=== PATIENT | female | born 1935 | race Caucasian/White ===

== ENCOUNTER → 2017-06-16 | Outpatient (CLI) | payer MEDICARE ==
[~2017-06-16] VITALS: Ht 166.4 cm; Wt 83.9 kg
[~2017-06-16] MED LIST: DILT240C86 PO
[2017-06-16 13:21] VITALS: BP 137/80
[2017-06-16 14:05] LABS: BASOPHILS % (AUTO) 1 % (0-10); EOSINOPHILS # (AUTO) 0.1 10^3/uL (0.0-0.3); EOSINOPHILS % (AUTO) 1 % (0-10); HEMATOCRIT 41 % (35-52); HEMOGLOBIN 13.8 G/DL (11.5-16.0); LYMPHOCYTES # (AUTO) 2.3 X 10^3 (1.0-4.0); LYMPHOCYTES % (AUTO) 31 % (12-44); MEAN CORPUSCULAR HEMOGLOBIN 28 PG (25-34); MEAN CORPUSCULAR HGB CONC 34 G/DL (32-36); MEAN CORPUSCULAR VOLUME 84 FL (80-99); MEAN PLATELET VOLUME 11.3 FL (7.4-10.4); MONOCYTES # (AUTO) 0.8 X 10^3 (0.0-1.0); MONOCYTES % (AUTO) 10 % (0-12); NEUTROPHILS # (AUTO) 4.3 X 10^3 (1.8-7.8); NEUTROPHILS % (AUTO) 57 % (42-75); PLATELET COUNT 286 10^3/uL (130-400); RED CELL DISTRIBUTION WIDTH 15.4 % (10.0-14.5); WHITE BLOOD COUNT 7.5 10^3/uL (4.3-11.0)
[2017-06-16 14:19] LABS: BUN/CREATININE RATIO 22; CALCIUM 9.6 MG/DL (8.5-10.1); CARBON DIOXIDE 23 MMOL/L (21-32); CHLORIDE 106 MMOL/L (98-107); CREATININE SERUM 0.68 MG/DL (0.60-1.30); GFR ESTIMATED > 60; GLUCOSE 94 MG/DL (70-105); POTASSIUM 4.1 MMOL/L (3.6-5.0); SODIUM 141 MMOL/L (135-145)
== END ==
LOC: PREOP 12:51
PROVIDERS: ATTEND Otolaryngology Otolaryngology/Facial Plastic Surgery
DX: Z01.812 Encounter for preprocedural laboratory examination (principal); Z11.2 Encounter for screening for other bacterial diseases; J34.9 Unspecified disorder of nose and nasal sinuses
CPT/HCPCS: 36415; 80048; 85025; 87081

== ENCOUNTER 2017-06-23 07:25 | Day surgery (SDC) | payer MEDICARE ==
[~2017-06-23] VITALS: Ht 166.4 cm; Wt 75.3 kg
[2017-06-23 07:20] VITALS: BP 163/84
[2017-06-23] MEDS ORDERED: LACTATED RINGERS 1,000 ML IV PRN ×2 (07:27→08:07)
[2017-06-23] MEDS ORDERED: MUPIROCIN 2% OINT 22 GM (BACTROBAN) TUBE ONE (07:31)
[2017-06-23] MEDS ORDERED: LIDOCAINE 1% INJ 20 ML 20 ML VIAL ONE (07:31)
[2017-06-23] MEDS ORDERED: ONDANSETRON 4 MG/2 ML (SDV) Z0FRAN ONE ×2 (07:46→10:15)
[2017-06-23] MEDS ORDERED: FAMOTIDINE 20MG/2ML IV (PEPCID) ONE (07:47)
[2017-06-23] MEDS ORDERED: FAMOTIDINE 20MG/2ML IV (PEPCID) IV ONE (08:15)
[2017-06-23] MEDS ORDERED: ONDANSETRON 4 MG/2 ML (SDV) Z0FRAN IV ONE (08:15)
[2017-06-23] MEDS ORDERED: proPOfol 200 MG/20 ML (DIPRIVAN) VIAL IV ONE ×3 (08:29→10:39)
[2017-06-23] MEDS ORDERED: fentaNYL INJECTION 100 MCG/2 ML AMP ONE (08:31)
[2017-06-23] MEDS ORDERED: LIDOCAINE/EPI 1%-1:200,000 (XYLOCAINE) 10 ML VIAL ONE (09:43)
[2017-06-23] MEDS ORDERED: DEXAMETHASONE 10 MG/ML (DECADRON) 1 ML VIAL ONE (10:15)
[2017-06-23] MEDS ORDERED: PROPOFOL INJECTION 100 ML IV ONE (10:15)
[2017-06-23] MEDS ORDERED: BSS 15 ML ONE (10:57)
[2017-06-23 12:15] VITALS: BP 121/55
[2017-06-23] MEDS ORDERED: ONDA4TAB8 SL (12:32)
[2017-06-23] MEDS ORDERED: CEPH-507 PO (12:33)
[2017-06-23] MEDS ORDERED: ACHD5005 PO (12:34)
[2017-06-23 12:45] VITALS: BP 117/56
--- NOTE | 2017-06-23 13:14 | Anesthesia-General Post-Op ---
General Patient Condition Mental Status/LOC: Same as Preop Cardiovascular: Satisfactory Nausea/Vomiting: Absent Respiratory: Satisfactory Pain: Controlled Complications: Absent Post Op Complications Complications None Follow Up Care/Instructions Patient Instructions None needed. Anesthesia/Patient Condition Patient Condition Patient was seen prior to discharge to home and was doing well, no complaints, stable vital signs, no apparent adverse anesthesia problems. CURTIS ZAPIEN DO Jun 23, 2017 13:14
[2017-06-23 13:15] VITALS: BP 107/85
[2017-06-23 15:00] VITALS: BP 107/85
--- NOTE | 2017-06-23 17:16 | Progress Note-Pre Operative ---
Pre-Operative Progress Note H&P Reviewed The H&P was reviewed, patient examined and no changes noted. Date Seen by Provider: Jun 23, 2017 Time Seen by Provider: 08:00 Date H&P Reviewed: Jun 23, 2017 Time H&P Reviewed: 08:00 Pre-Operative Diagnosis: Right Nasal Lesion, Right cheek lesion RADHIKA HOLLAND MD Jun 23, 2017 5:16 pm
[2017-06-23] MEDS ORDERED: HYDROcodone/APAP 5 MG/325 MG (LORTAB) TAB PO PRN (17:30)
[2017-06-23] MEDS ORDERED: ACETAMINOPHEN 325 MG TABLET/CAPLET (TYLENOL) PO PRN (17:30)
== END 2017-06-23 15:00 | disposition home or self-care (01) ==
LOC: SDC 07:25
PROVIDERS: ATTEND Otolaryngology Otolaryngology/Facial Plastic Surgery
DX: C44.311 Basal cell carcinoma of skin of nose (principal); L57.0 Actinic keratosis; R00.9 Unspecified abnormalities of heart beat; Z79.899 Other long term (current) drug therapy

== ENCOUNTER 2017-06-30 07:45 | Outpatient (CLI) | payer MEDICARE ==
[~2017-06-30] VITALS: Ht 166.4 cm; Wt 75.3 kg
[~2017-06-30 07:45] MED LIST changes: +ACHD5005 PO; +CEPH-507 PO; +ONDA4TAB8 SL
== END 2017-06-30 11:20 ==
LOC: PREOP 07:45
PROVIDERS: ATTEND Otolaryngology Otolaryngology/Facial Plastic Surgery
DX: Z01.818 Encounter for other preprocedural examination (principal); L98.9 Disorder of the skin and subcutaneous tissue, unspecified

== ENCOUNTER 2017-07-01 07:01 | Day surgery (SDC) | payer MEDICARE ==
[~2017-07-01] VITALS: Ht 166.4 cm; Wt 75.3 kg
--- NOTE | 2017-07-01 07:07 | Progress Note-Pre Operative ---
Pre-Operative Progress Note H&P Reviewed The H&P was reviewed, patient examined and no changes noted. Date Seen by Provider: Jul 01, 2017 Time Seen by Provider: 07:00 Date H&P Reviewed: Jul 01, 2017 Time H&P Reviewed: 07:00 Pre-Operative Diagnosis: Basal Cell of the nose, squamous mariana lof the right cheek RADHIKA HOLLAND MD Jul 01, 2017 7:07 am
[2017-07-01 07:20] VITALS: BP 136/69
[2017-07-01] MEDS ORDERED: LACTATED RINGERS 1,000 ML IV PRN (07:33)
[2017-07-01] MEDS ORDERED: FAMOTIDINE 20MG/2ML IV (PEPCID) IV ONE (07:45)
[2017-07-01] MEDS ORDERED: ONDANSETRON 4 MG/2 ML (SDV) Z0FRAN IV ONE (07:45)
[2017-07-01] MEDS ORDERED: MUPIROCIN 2% OINT 22 GM (BACTROBAN) TUBE ONE (07:51)
[2017-07-01] MEDS ORDERED: LIDOCAINE/EPI 1%-1:200,000 (XYLOCAINE) 10 ML VIAL ONE (07:51)
[2017-07-01] MEDS ORDERED: fentaNYL INJECTION 100 MCG/2 ML AMP ONE (08:32)
[2017-07-01] MEDS ORDERED: DEXAMETHASONE 10 MG/ML (DECADRON) 1 ML VIAL ONE (08:34)
[2017-07-01] MEDS ORDERED: PROPOFOL INJECTION 0 ML IV ONE (08:34)
[2017-07-01] MEDS ORDERED: LIDOCAINE PF 2% 5 ML (XYLOCAINE) VIAL ONE (08:34)
[2017-07-01] MEDS ORDERED: proPOfol 200 MG/20 ML (DIPRIVAN) VIAL IV ONE (08:34)
[2017-07-01] MEDS ORDERED: ONDANSETRON 4 MG/2 ML (SDV) Z0FRAN ONE ×2 (08:34→08:55)
[2017-07-01] MEDS ORDERED: PROPOFOL INJECTION 50 ML IV ONE ×2 (08:55→09:13)
[2017-07-01] MEDS ORDERED: SEVOFLURANE (ULTANE) 15 ML INHAL SOLN ONE ×5 (08:55→10:01)
[2017-07-01] MEDS ORDERED: BSS 15 ML ONE (09:39)
--- NOTE | 2017-07-01 10:02 | Progress Note-Post Operative ---
Post-Operative Progess Note Surgeon (s)/Wire Frame Lamp Shade Maker (s) Surgeon RADHIKA HOLLAND MD Wire Frame Lamp Shade Maker n/a Pre-Operative Diagnosis Basal Cell of the nose, squamous mariana lof the right cheek Post-Operative Diagnosis same Post-Op Procedure Note Date of Procedure: Jul 01, 2017 Name of Procedure Performed: Re Excsiion of right nasal lesion,Reexcisn of right cheek wlesion with intermediate repair Description & Findings Description and Findings: n/a Anesthesia Type lma Estimated Blood Loss minimal Packing none. Specimen(s) collected/removed right nasal lesion-margins clear right cheek lesion [facility] [place] and squamous cell ca in situ RADHIKA HOLLAND MD Jul 01, 2017 10:02 am
[2017-07-01] MEDS ORDERED: ACETAMINOPHEN 325 MG TABLET/CAPLET (TYLENOL) PO PRN (10:15)
[2017-07-01] MEDS ORDERED: ONDANSETRON 4 MG/2 ML (SDV) Z0FRAN IVP PRN (10:15)
[2017-07-01] MEDS ORDERED: HYDROcodone/APAP 5 MG/325 MG (LORTAB) TAB PO PRN (10:15)
[2017-07-01] MEDS ORDERED: MEPERIDINE (DEMEROL) INJ 50 MG/ML IVP PRN (10:15)
[2017-07-01] MEDS: morphine INJ 10 MG/ML 1ML (SYR OR VIAL) IVP PRN ×2 (10:25→10:30)
[2017-07-01] MEDS ORDERED: morphine INJ 10 MG/ML 1ML (SYR OR VIAL) ONE (10:37)
[2017-07-01 11:10] VITALS: BP 121/62
[2017-07-01 11:11] VITALS: BP 121/62
[2017-07-01 11:40] VITALS: BP 113/64
[2017-07-01 12:10] VITALS: BP 104/58
--- NOTE | 2017-07-01 13:33 | Anesthesia-General Post-Op ---
General Patient Condition Mental Status/LOC: Same as Preop Cardiovascular: Satisfactory Nausea/Vomiting: Absent Respiratory: Satisfactory Pain: Controlled Complications: Absent Post Op Complications Complications None Follow Up Care/Instructions Patient Instructions None needed. Anesthesia/Patient Condition Patient Condition Patient is doing well, no complaints, stable vital signs, no apparent adverse anesthesia problems. No complications reported per nursing. DEDE DAMON CRNA Jul 01, 2017 13:33
== END 2017-07-01 12:20 | disposition home or self-care (01) ==
LOC: SDC 07:01
PROVIDERS: ATTEND Otolaryngology Otolaryngology/Facial Plastic Surgery
DX: C44.311 Basal cell carcinoma of skin of nose (principal); I49.9 Cardiac arrhythmia, unspecified; Z79.899 Other long term (current) drug therapy; Z96.653 Presence of artificial knee joint, bilateral
CPT/HCPCS: 87081

== ENCOUNTER → 2018-05-30 | Outpatient (CLI) | payer MEDICARE ==
[2018-05-30 10:11] LABS: ALANINE AMINOTRANSFERASE 8 U/L (0-55); ALBUMIN 4.1 GM/DL (3.2-4.5); ALKALINE PHOSPHATASE 84 U/L (40-136); BILIRUBIN,TOTAL 0.3 MG/DL (0.1-1.0); BUN/CREATININE RATIO 27; CALCIUM 9.7 MG/DL (8.5-10.1); CARBON DIOXIDE 20 MMOL/L (21-32); CHLORIDE 103 MMOL/L (98-107); CREATININE SERUM 0.64 MG/DL (0.60-1.30); GFR ESTIMATED > 60; GLUCOSE 100 MG/DL (70-105); POTASSIUM 4.4 MMOL/L (3.6-5.0); SODIUM 142 MMOL/L (135-145); TOTAL PROTEIN 7.5 GM/DL (6.4-8.2)
[2018-05-30 15:20] LABS: CHOLESTEROL 233 MG/DL (< 200); HDL CHOLESTEROL 48 MG/DL (40-60); TRIGLYCERIDES 178 MG/DL (<150); VLDL CHOLESTEROL 36 MG/DL (5-40)
== END ==
LOC: LAB FS 09:06
PROVIDERS: ATTEND Pediatrics
DX: I10 Essential (primary) hypertension (principal)
CPT/HCPCS: 36415; 80053; 80061

== ENCOUNTER 2022-03-05 07:54 | Emergency (ER) | payer MEDICARE ==
[~2022-03-05] VITALS: Ht 165.1 cm; Wt 65.3 kg
[2022-03-05] MEDS ORDERED: fentaNYL INJ 100 MCG/2 ML AMP IVP STA ×2 (08:08→09:55)
[2022-03-05] MEDS ORDERED: TETANUS,DIPTH,PERTUSS P/F (BOOSTRIX) 0.5 ML VIAL IM ONE (08:15)
--- NOTE | 2022-03-05 08:16 | ED Hip Pain/Injury ---
General Chief Complaint: Hip/Pelvic Problems Stated Complaint: FALL | LT HIP PAIN Source: patient, EMS Exam Limitations: no limitations History of Present Illness Date Seen by Provider: Mar 05, 2022 Time Seen by Provider: 07:55 Initial Comments Tuesday morning with complaint of left hip pain after she was walking down her steps and slipped on the last 1 and fell on her left hip. She did hit her head but did not lose consciousness. Does complain of significant left hip pain. EMS was summoned and brought her here. EMS in route noted left leg shortening and rotation as well as significant left hip pain. They did initiate IV and gave Zofran 4 mg IV as well as morphine 3 mg IV x2. Patient's pain is 6 out of 10 now. Denies other significant injury. EMS reports vital signs within normal to slightly elevated blood pressure and normal heart rate with normal O2 saturation. Patient does have history of previous knee replacement at [facility]. Timing/Duration: this morning Severity: moderate Location: hip (L), pelvis Modifying Factors: Improves With Immobilization; Worse With Movement Associated Symptoms: No fatigue; groin pain Allergies and Home Medications Allergies Coded Allergies: codeine (Verified Allergy, Mild, GI UPSET/ITCHING, 06/16/17) nitrofurazone (Verified Allergy, Mild, HIVES, 06/16/17) Patient Home Medication List Home Medication List Reviewed: Yes Cephalexin (Keflex) 500 Mg Capsule, 500 MG PO TID, (Reported) Entered as Reported by: JAVIER TAYLOR on 06/23/17 1233 Diltiazem HCl (Cardizem Cd) 240 Mg Cap.er.24h, 240 MG PO DAILY, (Reported) Entered as Reported by: EBER FAIRBANKS on 06/16/17 1313 Hydrocodone Bit/Acetaminophen (Lortab 5 Mg Tablet) 1 Tab Tab, 1 TAB PO Q4H PRN for PAIN-MILD, (Reported) Entered as Reported by: JAVIER TAYLOR on 06/23/17 1234 Ondansetron (Zofran Odt) 4 Mg Tab.rapdis, 4 MG SL Q8H PRN for NAUSEA/VOMITING- 1ST LINE, (Reported) Entered as Reported by: JAVIER TAYLOR on 06/23/17 1232 Review of Systems Constitutional: see HPI; No chills, No fever EENTM: No nose congestion, No throat pain Respiratory: No cough, No short of breath Cardiovascular: No chest pain, No edema Gastrointestinal: nausea; No vomiting Genitourinary: no symptoms reported Musculoskeletal: No back pain; joint pain, muscle pain; No neck pain Skin: No change in color; lesions (Abrasion left forearm just proximal to the wrist on the ulnar side) Psychiatric/Neurological: Denies Headache, Denies Paresthesia, Denies Weakness Past Efnmyjk-Dhixlk-Fcqyzi Hx Patient Social History Tobacco Use?: No Smoking Status: Never a Smoker Smokeless Tobacco Frequency: Never a User Use of E-Cig and/or Vaping dev: No Use of E-Cig and/or Vaping Naldo: Never a User Substance use?: No Alcohol Use?: No Pt feels they are or have been: No Immunizations Up To Date Tetanus Booster (TDap): Unknown PED Vaccines UTD: No COVID19 Vacc[address] Superintendent: MODERNA Seasonal Allergies Seasonal Allergies: No Past Medical History Surgeries: Yes Hysterectomy, Orthopedic Respiratory: No Cardiac: Yes Hypertension, Irregular Heartbeat Reproductive Disorders: No BODY WELDER History: Hysterectomy Sexually Transmitted Disease: No HIV/AIDS: No Gastrointestinal: Yes Gastroesophageal Reflux Musculoskeletal: Yes Arthritis Loss of Vision: Bilateral Hearing Impairment: Denies Cancer: Yes Skin Did You Recieve Any Treatments: Yes What Type of Treatment Did You: Surgical Intervention Adverse Reaction/Blood Tranf: No (HAS HAD BLOOD WITH NO REACTION) Family Medical History Reviewed Nursing Family Hx No Pertinent Family Hx Physical Exam Vital Signs Vital Signs - First Documented 03/05/22 07:57 Temp 36.6 Pulse 63 Resp 15 B/P (MAP) 133/94 (107) O2 Delivery Room Air Capillary Refill : Height, Weight, BMI Height: 5'5.50" Weight: 166lbs. 1.0oz. 75.215407bo; 27.2 BMI Method: General Appearance: WD/WN, Mild Distress (Hip pain left) HEENT: PERRL/EOMI, TMs Normal, Pharynx Normal Neck: Non Tender, Supple Cardiovascular: Regular Rate, Rhythm, No Murmur Respiratory: Lungs Clear, Normal Breath Sounds Gastrointestinal: Non Tender, Soft Back: Normal Inspection, No CVA Tenderness, No Vertebral Tenderness Extremity: Normal Range of Motion, Non Tender Neurologic/Psychiatric: Alert, Oriented x3 Skin: Normal Color, Warm/Dry Progress/Results/Core Measures Results/Orders Lab Results Laboratory Tests Test 03/05/22 08:00 03/05/22 09:35 Range/Units White Blood Count 9.4 4.3-11.0 10^3/uL Red Blood Count 4.11 3.80-5.11 10^6/uL Hemoglobin 12.1 11.5-16.0 g/dL Hematocrit 36 35-52 % Mean Corpuscular Volume 89 80-99 fL Mean Corpuscular Hemoglobin 29 25-34 pg Mean Corpuscular Hemoglobin Concent 33 32-36 g/dL Red Cell Distribution Width 14.6 H 10.0-14.5 % Platelet Count 252 130-400 10^3/uL Mean Platelet Volume 11.7 9.0-12.2 fL Immature Granulocyte % (Auto) 1 % Neutrophils (%) (Auto) 75 42-75 % Lymphocytes (%) (Auto) 16 12-44 % Monocytes (%) (Auto) 8 0-12 % Eosinophils (%) (Auto) 1 0-10 % Basophils (%) (Auto) 1 0-10 % Neutrophils # (Auto) 7.1 1.8-7.8 10^3/uL Lymphocytes # (Auto) 1.5 1.0-4.0 10^3/uL Monocytes # (Auto) 0.7 0.0-1.0 10^3/uL Eosinophils # (Auto) 0.1 0.0-0.3 10^3/uL Basophils # (Auto) 0.1 0.0-0.1 10^3/uL Immature Granulocyte # (Auto) 0.1 0.0-0.1 10^3/uL Sodium Level 141 135-145 MMOL/L Potassium Level 3.6 3.6-5.0 MMOL/L Chloride Level 109 H 98-107 MMOL/L Carbon Dioxide Level 22 21-32 MMOL/L Anion Gap 10 5-14 MMOL/L Blood Urea Nitrogen 11 7-18 MG/DL Creatinine 0.61 0.60-1.30 MG/DL Estimat Glomerular Filtration Rate 88 BUN/Creatinine Ratio 18 Glucose Level 101 70-105 MG/DL Calcium Level 8.7 8.5-10.1 MG/DL Corrected Calcium 9.0 8.5-10.1 MG/DL Total Bilirubin 0.3 0.1-1.0 MG/DL Aspartate Amino Transf (AST/SGOT) 13 5-34 U/L Alanine Aminotransferase (ALT/SGPT) 12 0-55 U/L Alkaline Phosphatase 60 40-136 U/L Total Protein 6.4 6.4-8.2 GM/DL Albumin 3.6 3.2-4.5 GM/DL My Orders Orders - MERY MARROQUIN MD Ct Head/Cervical Spine Wo (03/05/22 08:08) Pelvis With Left Hip 2-3 Views (03/05/22 08:08) Fentanyl Inj (Sublimaze Injection) (03/05/22 08:08) Dipht,Pertuss(Acell),Tet Adult (Boostrix (03/05/22 08:15) Chest 1 View, Ap/Pa Only (03/05/22 08:42) Cbc With Automated Diff (03/05/22 08:42) Comprehensive Metabolic Panel (03/05/22 08:42) Catheter(Urinary) Insert & Ass 03,15 (03/05/22 08:53) Ua Culture If Indicated (03/05/22 08:53) Vital Signs/I&O 03/05/22 07:57 Temp 36.6 Pulse 63 Resp 15 B/P (MAP) 133/94 (107) O2 Delivery Room Air Progress Progress Note : Progress Note Seen and evaluated. IV by EMS. We will get CT of the head and C-spine as well as x-ray of the left hip and pelvis. If hip is broken then we will add labs. We do not have orthopedic coverage until next Tuesday so if this is broken she will need to be transferred. I did speak with the patient about this and she would prefer to be transferred to [facility] as that is where her orthopedists are. I have ordered fentanyl 50 mcg IV for pain as needed during x-ray procedure. We will also update her tetanus today. Monitor patient. 0855: Chest x-ray reviewed by me and she has obvious left hip fracture in the neck with lesser trochanter fragment noted as well. We will do Vasquez catheter. I have added CBC and CMP as well as chest x-ray. UA ordered for Vasquez catheter. Patient's pain is okay right now. We will initiate transfer proceedings to [facility] in [place], [place]. Monitor patient. 0924: I have initiated transfer proceedings with [facility] in [facility]. Pending discussion with accepting physician. 0931: Case discussed with Dr. Velasquez from the emergency department. She accepts patient for transfer from the emergency department to the emergency department. Diagnostic Imaging Diagonstic Imaging: CT Plain Films/CT/US/NM/MRI: c-spine, head Comments NAME: CHRISTAVIKASMANUELSACHINGOLDIE Elfego [facility] REC#: [id number] PT STATUS: REG ER : 1935 PHYSICIAN: MERY MARROQUIN MD ADMIT DATE: 03/05/22/ER Draft Date of Exam:03/05/22 CT HEAD/CERVICAL SPINE WO PROCEDURE: CT head and CT cervical spine without contrast. TECHNIQUE: Multiple contiguous axial images were obtained through the brain and cervical spine without the use of intravenous contrast. Sagittal and coronal reformations through the cervical spine were then performed. Auto Exposure Controls were utilized during the CT exam to meet ALARA standards for radiation dose reduction. INDICATION: Head trauma CT head without contrast The ventricles are normal in size, shape and position. There are no masses or hemorrhages. There are no extra axial fluid collections. IMPRESSION: Negative CT head CT cervical spine: Vertebral body height and alignment appear normal. There are diffuse degenerative disc changes of the cervical spine. There is no fracture or dislocation. IMPRESSION: Degenerative changes of the cervical spine. No acute abnormality seen. Dictated on workstation # [id number] Dict: 03/05/22 0839 Trans: 03/05/22 0842 [facility] [id number] Interpreted by: MERY DEGROOT MD Electronically signed by: Reviewed: Reviewed by Wi Diagonstic Imaging: Xray Plain Films/CT/US/NM/MRI: pelvis, hip Comments [facility] [place] NAME: GOLDIE APARICIO Elfego [facility] REC#: [id number] PT STATUS: REG ER : 1935 PHYSICIAN: MERY MARROQUIN MD ADMIT DATE: 03/05/22/ER Draft Date of Exam:03/05/22 PELVIS WITH LEFT HIP 2-3 VIEWS Indication: Fall. Time of Exam: 8:40 AM AP view of the pelvis and 2 views of the left hip demonstrate acute intertrochanteric left hip fracture. There is coxa varus deformity. Femoral acetabular alignment is maintained. Right hip is intact. Rami are intact. Impression: Intertrochanteric left hip fracture. Dictated on workstation # [id number] Dict: 03/05/22 0847 Trans: 03/05/2248 [facility] [id number] Interpreted by: KRISTY ALBRIGHT MD Electronically signed by: Reviewed: Reviewed by Me Diagonstic Imaging: Xray Plain Films/CT/US/NM/MRI: chest Comments [facility] [place] NAME: GOLDIE APARICIO [facility] REC#: [id number] PT STATUS: REG ER : 1935 PHYSICIAN: MERY MARROQUIN MD ADMIT DATE: 03/05/22/ER Draft Date of Exam:03/05/22 CHEST 1 VIEW, AP/PA ONLY INDICATION: Preoperative evaluation, hip pain COMPARISON: None available TECHNIQUE: Single radiograph of the chest dated 03/05/2022. FINDINGS: The cardiac silhouette is at the upper limits of normal in size. No significant pulmonary vascular congestion. The lungs are clear of focal pulmonary opacity. No pleural effusion. No pneumothorax. No acute osseous abnormality. IMPRESSION: No acute cardiopulmonary abnormality. Dictated on workstation # [id number] Dict: 03/05/22904 Trans: 03/05/22921 CV [id number] Interpreted by: RACH CORONADO MD Electronically signed by: Reviewed: Reviewed by Me Departure Impression Primary Impression: Intertrochanteric fracture of left hip Qualified Codes: S72.145A - Nondisplaced intertrochanteric fracture of left femur, initial encounter for closed fracture Disposition: XF SHT-TRM HOSP Condition: Stable Transfer Transfer Reason: Exceeds level of care Time Spoke to Accepting Phy: 09:31 Transfer Time: 09:31 Transfer Facility: [place], [place], Dr. Velasquez accepting Method of Transfer: EMS Departure-Patient Inst. Referrals: YANELI LEDEZMA MD (PCP/Family) Primary Care Physician MERY MARROQUIN MD Mar 05, 2022 08:16
--- NOTE | 2022-03-05 08:42 | Diagnostic Imaging Report ---
PROCEDURE: CT head and CT cervical spine without contrast. TECHNIQUE: Multiple contiguous axial images were obtained through the brain and cervical spine without the use of intravenous contrast. Sagittal and coronal reformations through the cervical spine were then performed. Auto Exposure Controls were utilized during the CT exam to meet ALARA standards for radiation dose reduction. INDICATION: Head trauma CT head without contrast The ventricles are normal in size, shape and position. There are no masses or hemorrhages. There are no extra axial fluid collections. IMPRESSION: Negative CT head CT cervical spine: Vertebral body height and alignment appear normal. There are diffuse degenerative disc changes of the cervical spine. There is no fracture or dislocation. IMPRESSION: Degenerative changes of the cervical spine. No acute abnormality seen. Dictated by: Dictated on workstation # [id number]
[2022-03-05 08:47] LABS: BASOPHILS # (AUTO) 0.1 10^3/uL (0.0-0.1); BASOPHILS % (AUTO) 1 % (0-10); EOSINOPHILS # (AUTO) 0.1 10^3/uL (0.0-0.3); EOSINOPHILS % (AUTO) 1 % (0-10); HEMATOCRIT 36 % (35-52); HEMOGLOBIN 12.1 g/dL (11.5-16.0); LYMPHOCYTES # (AUTO) 1.5 10^3/uL (1.0-4.0); LYMPHOCYTES % (AUTO) 16 % (12-44); MEAN CORPUSCULAR HEMOGLOBIN 29 pg (25-34); MEAN CORPUSCULAR HGB CONC 33 g/dL (32-36); MEAN CORPUSCULAR VOLUME 89 fL (80-99); MEAN PLATELET VOLUME 11.7 fL (9.0-12.2); MONOCYTES # (AUTO) 0.7 10^3/uL (0.0-1.0); MONOCYTES % (AUTO) 8 % (0-12); NEUTROPHILS # (AUTO) 7.1 10^3/uL (1.8-7.8); NEUTROPHILS % (AUTO) 75 % (42-75); PLATELET COUNT 252 10^3/uL (130-400); WHITE BLOOD COUNT 9.4 10^3/uL (4.3-11.0)
--- NOTE | 2022-03-05 08:49 | Diagnostic Imaging Report ---
Indication: Fall. Time of Exam: 8:40 AM AP view of the pelvis and 2 views of the left hip demonstrate acute intertrochanteric left hip fracture. There is coxa varus deformity. Femoral acetabular alignment is maintained. Right hip is intact. Rami are intact. Impression: Intertrochanteric left hip fracture. Dictated by: Dictated on workstation # [id number]
[2022-03-05 08:57] LABS: ALBUMIN 3.6 GM/DL (3.2-4.5); POTASSIUM 3.6 MMOL/L (3.6-5.0)
[2022-03-05 08:58] LABS: CALCIUM 8.7 MG/DL (8.5-10.1)
[2022-03-05 08:59] LABS: TOTAL PROTEIN 6.4 GM/DL (6.4-8.2)
[2022-03-05 09:01] LABS: BILIRUBIN,TOTAL 0.3 MG/DL (0.1-1.0)
[2022-03-05 09:03] LABS: CREATININE SERUM 0.61 MG/DL (0.60-1.30)
--- NOTE | 2022-03-05 09:23 | Diagnostic Imaging Report ---
INDICATION: Preoperative evaluation, hip pain COMPARISON: None available TECHNIQUE: Single radiograph of the chest dated 03/05/2022. FINDINGS: The cardiac silhouette is at the upper limits of normal in size. No significant pulmonary vascular congestion. The lungs are clear of focal pulmonary opacity. No pleural effusion. No pneumothorax. No acute osseous abnormality. IMPRESSION: No acute cardiopulmonary abnormality. Dictated by: Dictated on workstation # [id number]
[2022-03-05 09:38] LABS: BILIRUBIN,URINE NEGATIVE (NEGATIVE); CLARITY,URINE CLEAR; COLOR,URINE YELLOW; GLUCOSE, URINE (UA) NEGATIVE (NEGATIVE); KETONES,URINE NEGATIVE (NEGATIVE); LEUKOCYTE ESTERASE ,URINE NEGATIVE (NEGATIVE); NITRITE,URINE NEGATIVE (NEGATIVE); PH,URINE 6.5 (5-9); PROTEIN,URINE NEGATIVE (NEGATIVE)
[2022-03-05 10:11] LABS: BACTERIA,URINE NEGATIVE /HPF; RBC,URINE RARE /HPF; SQUAMOUS EPITHELIAL CELL,UR RARE /HPF
[2022-03-05 10:37] VITALS: BP 124/76
== END 2022-03-05 10:38 | disposition short-term general hospital (02) ==
LOC: EDUNIT# 07:54 → ER 07:55
DX: S72.142A Displaced intertrochanteric fracture of left femur, initial encounter for closed fracture (principal); W01.118A Fall on same level from slipping, tripping and stumbling with subsequent striking against other sharp object, initial encounter; Y93.01 Activity, walking, marching and hiking
CPT/HCPCS: 36415; 51702; 70450; 71045; 72125; 80053; 81000; 85025; 90715